=== PATIENT | female | born 1955 | race African-American/Black ===

== ENCOUNTER 2018-06-13 20:27 | Emergency (ER) | payer MEDICARE, OTHER ==
[2018-06-13] MEDS: IBUPROFEN 800 MG TAB PO (20:40)
[2018-06-13] MEDS: DIPHTH/TET/ACEL PERTUSS (ADULT) 0.5 ML VIAL IM* (20:40)
== END 2018-06-13 22:21 | disposition home or self-care (01) ==
LOC: E/R 22:21
DX: S81.811A Laceration without foreign body, right lower leg, initial encounter (principal); I10 Essential (primary) hypertension; X99.1XXA Assault by knife, initial encounter; Z23 Encounter for immunization
CPT/HCPCS: 73562; 73590; 90471; 90715; 99283-25